=== PATIENT | male | born 1960 | race Caucasian/White ===

== ENCOUNTER 2021-12-06 06:53 | Day surgery (SDC) | payer BC ==
[2021-11-30 15:20] VITALS: BMI 27.3
[~2021-12-06 06:53] MED LIST: LACTATED RINGERS 1,000 ML IV SCH; LIDOCAINE 1% (10MG/ML) FOR IV START INTRADERMA PRN
[2021-12-06 07:18] VITALS: TEMP 98.2
[2021-12-06] MEDS ORDERED: PROPOFOL 10 MG/ML 20 ML VIAL IV ONE (07:34)
--- NOTE | 2021-12-06 08:03 | P.PCN ---
Date of Procedure: 12/06/21 Procedure(s) Performed: BRIEF HISTORY: Patient is a 61-year-old pleasant white male scheduled for an elective colonoscopy as a part of the prior history of colon polyps. PROCEDURE PERFORMED: Colonoscopy with biopsy. PREOPERATIVE DIAGNOSIS: History of colon polyps. IV sedation per Anesthesia. PROCEDURE: After informed consent was obtained, the patient, was brought into the endoscopy unit. IV sedation was administered by Anesthesia under continuous monitoring. Digital rectal examination was normal. Initially the Olympus CF-160 flexible video colonoscope was then inserted in the rectum, gradually advanced into the cecum without any difficulty. Careful examination was performed as the scope was gradually being withdrawn. Ileocecal valve and the appendiceal orifice were visualized and appeared normal. Prep was excellent. Mucosa of the cecum, ascending colon, normal. In the hepatic flexure there was a 5 mm sessile polyp that was removed by cold biopsy. Rest of the transverse colon, descending colon, sigmoid colon, and rectum appeared normal. Retroflexion was performed in the rectum and no lesions were seen. The patient tolerated the procedure well. IMPRESSION: Will meter sessile polyp in the hepatic flexure status post cold biopsy Rest of the colon appeared normal RECOMMENDATIONS: Findings of this examination were discussed with the patient as well as his family. He was advised with the biopsy results. If the biopsy result adenoma he can have a repeat colonoscopy in 5 years..
[2021-12-06 08:25] VITALS: BP 130/72; PULSE 64; RESP 16
== END 2021-12-06 08:40 | disposition home or self-care (01) ==
LOC: ORWHC2ENDO 06:53
PROVIDERS: ATTEND Internal Medicine Gastroenterology
DX: Z12.11 Encounter for screening for malignant neoplasm of colon (principal); D12.3 Benign neoplasm of transverse colon; Z86.010 Personal history of colon polyps; F17.290 Nicotine dependence, other tobacco product, uncomplicated; K21.9 Gastro-esophageal reflux disease without esophagitis; Z79.899 Other long term (current) drug therapy; Z88.5 Allergy status to narcotic agent; Z88.8 Allergy status to other drugs, medicaments and biological substances; Z91.030 Bee allergy status
CPT/HCPCS: 88305; 45380; J2704

== ENCOUNTER 2021-12-11 11:18 | Observation (INO) | payer BC ==
[2021-12-11] MEDS ORDERED: SODIUM CHLORIDE 0.9% 1,000 ML IV STA (11:25)
--- NOTE | 2021-12-11 11:30 | ED ---
Abdominal Pain HPI - General Chief Complaint: Abdominal Pain Stated Complaint: abd pain Time Seen by Provider: 12/11/21 11:25 Source: patient, RN notes reviewed Mode of arrival: ambulatory Limitations: no limitations - History of Present Illness Initial Comments: This is a pleasant 61-year-old male who was sent over from the [facility] for an outpatient CT. Patient went to the diagnostic center and was turned back for not having preauthorization. Patient signed in as an ER patient. Patient has right lower quadrant abdominal pain. Patient states he had a colonoscopy on Sunday. Pain has been getting worse since then. No nausea or vomiting. Some constipation. No BM in 2 days. - Related Data Home Medications Medication Instructions Recorded Confirmed Tamsulosin HCl [Flomax] 0.4 mg PO DAILY 12/02/21 12/06/21 Allergies Allergy/AdvReac Type Severity Reaction Status Date / Time venom-honey bee Allergy Severe Swelling Verified 12/11/21 11:19 [bee venom (honey bee)] codeine Allergy Unknown Verified 12/11/21 11:19 Childhood fluoxetine [From Prozac] Allergy Rapid Verified 12/11/21 11:24 Heart Rate naproxen Allergy Swelling Verified 12/11/21 11:19 Review of Systems ROS Statement: Those systems with pertinent positive or pertinent negative responses have been documented in the HPI. ROS Other: All systems not noted in ROS Statement are negative. Past Medical History Past Medical History: GERD/Reflux Additional Past Medical History / Comment(s): GERD RESOLVED WITH DIET CHANGE History of Any Multi-Drug Resistant Organisms: None Reported Past Surgical History: Tonsillectomy Additional Past Surgical History / Comment(s): EGD, colonoscopy Past Anesthesia/Blood Transfusion Reactions: No Reported Reaction Past Psychological History: No Psychological Hx Reported Smoking Status: Former smoker Past Alcohol Use History: Occasional Past Drug Use History: None Reported - Past Family History Mother Family Medical History: Deep Vein Thrombosis (DVT) General Exam Limitations: no limitations General appearance: alert, in no apparent distress Head exam: Present: atraumatic, normocephalic, normal inspection Eye exam: Present: normal appearance, PERRL, EOMI. Absent: scleral icterus, conjunctival injection, periorbital swelling ENT exam: Present: normal exam, mucous membranes moist Neck exam: Present: normal inspection. Absent: tenderness, meningismus, lymphadenopathy Respiratory exam: Present: normal lung sounds bilaterally. Absent: respiratory distress, wheezes, rales, rhonchi, stridor Cardiovascular Exam: Present: regular rate, normal rhythm, normal heart sounds. Absent: systolic murmur, diastolic murmur, rubs, gallop, clicks GI/Abdominal exam: Present: soft, tenderness, guarding, normal bowel sounds. Absent: distended, rebound, rigid, diminished bowel sounds, hyperactive bowel sounds, hypoactive bowel sounds, organomegaly, mass, bruit, pulsatile mass, hernia Extremities exam: Present: normal inspection, full ROM, normal capillary refill. Absent: tenderness, pedal edema, joint swelling, calf tenderness Back exam: Present: normal inspection Neurological exam: Present: alert, oriented X3, CN II-XII intact Psychiatric exam: Present: normal affect, normal mood Skin exam: Present: warm, dry, intact, normal color. Absent: rash Course Vital Signs 12/11/21 12/11/21 11:20 15:00 Temperature 98.7 F Pulse Rate 74 62 Respiratory 18 18 Rate Blood Pressure 132/82 118/79 O2 Sat by Pulse 99 97 Oximetry Medical Decision Making - Medical Decision Making Patient presents with abdominal pain and right flank pain after having a screening colonoscopy on December 06. Differential includes intra-abdominal inflammatory versus infectious etiology, possible perforated bowel, possible musculoskeletal pain. Patient does state that he twisted getting to his vehicle that morning and may have had a slight tweak to his right lower back at that time. However symptoms have progressed. Mild diminished appetite. The case was discussed in detail with ED attending physician. Presentation, findings, treatment plan discussed in detail. Patient was also seen and assessed by the attending physician, Dr. Pardo. Patient will be admitted to [place] emergency department physician, under Dr. Alford for observation. Case discussed in detail. Renal ultrasound was added. Patient's computed tomography scan and blood work did not show any significant explain the patient's symptoms. - Lab Data Result diagrams: 12/11/21 11:46 12/11/21 12:25 Lab Results 12/11/21 12/11/21 12/11/21 Range/Units 11:34 11:39 11:46 WBC 9.2 (3.8-10.6) k/uL RBC 5.19 (4.30-5.90) m/uL Hgb 16.1 (13.0-17.5) gm/dL Hct 49.1 (39.0-53.0) % MCV 94.6 (80.0-100.0) fL MCH 31.1 (25.0-35.0) pg MCHC 32.9 (31.0-37.0) g/dL RDW 13.5 (11.5-15.5) % Plt Count 246 (150-450) k/uL MPV 7.9 Neutrophils % 79 % Lymphocytes % 16 % Monocytes % 3 % Eosinophils % 1 % Basophils % 0 % Neutrophils # 7.3 (1.3-7.7) k/uL Lymphocytes # 1.5 (1.0-4.8) k/uL Monocytes # 0.3 (0-1.0) k/uL Eosinophils # 0.1 (0-0.7) k/uL Basophils # 0.0 (0-0.2) k/uL Sodium (137-145) mmol/L Potassium (3.5-5.1) mmol/L Chloride (98-107) mmol/L Carbon Dioxide (22-30) mmol/L Anion Gap mmol/L BUN (9-20) mg/dL Creatinine (0.66-1.25) mg/dL Est GFR (CKD-EPI)AfAm (>60 ml/min/1.73 sqM) Est GFR (CKD-EPI)NonAf (>60 ml/min/1.73 sqM) Glucose (74-99) mg/dL Plasma Lactic Acid Rishi 1.5 (0.7-2.0) mmol/L Calcium (8.4-10.2) mg/dL Total Bilirubin (0.2-1.3) mg/dL AST (17-59) U/L ALT (4-49) U/L Alkaline Phosphatase (38-126) U/L Total Protein (6.3-8.2) g/dL Albumin (3.5-5.0) g/dL Amylase (30-110) U/L Lipase (23-300) U/L Urine Color Yellow Urine Appearance Clear (Clear) Urine pH 6.0 (5.0-8.0) Ur Specific [place] 1.022 (1.001-1.035) Urine Protein Trace H (Negative) Urine Glucose (UA) 1+ H (Negative) Urine Ketones Negative (Negative) Urine Blood Negative (Negative) Urine Nitrite Negative (Negative) Urine Bilirubin Negative (Negative) Urine Urobilinogen <2.0 (<2.0) mg/dL Ur Leukocyte Esterase Negative (Negative) 12/11/21 Range/Units 12:25 WBC (3.8-10.6) k/uL RBC (4.30-5.90) m/uL Hgb (13.0-17.5) gm/dL Hct (39.0-53.0) % MCV (80.0-100.0) fL MCH (25.0-35.0) pg MCHC (31.0-37.0) g/dL RDW (11.5-15.5) % Plt Count (150-450) k/uL MPV Neutrophils % % Lymphocytes % % Monocytes % % Eosinophils % % Basophils % % Neutrophils # (1.3-7.7) k/uL Lymphocytes # (1.0-4.8) k/uL Monocytes # (0-1.0) k/uL Eosinophils # (0-0.7) k/uL Basophils # (0-0.2) k/uL Sodium 137 (137-145) mmol/L Potassium 4.5 (3.5-5.1) mmol/L Chloride 110 H (98-107) mmol/L Carbon Dioxide 25 (22-30) mmol/L Anion Gap 2 mmol/L BUN 14 (9-20) mg/dL Creatinine 0.92 (0.66-1.25) mg/dL Est GFR (CKD-EPI)AfAm >90 (>60 ml/min/1.73 sqM) Est GFR (CKD-EPI)NonAf >90 (>60 ml/min/1.73 sqM) Glucose 110 H (74-99) mg/dL Plasma Lactic Acid Rishi (0.7-2.0) mmol/L Calcium 8.5 (8.4-10.2) mg/dL Total Bilirubin 0.5 (0.2-1.3) mg/dL AST 22 (17-59) U/L ALT 24 (4-49) U/L Alkaline Phosphatase 65 (38-126) U/L Total Protein 6.6 (6.3-8.2) g/dL Albumin 3.5 (3.5-5.0) g/dL Amylase 57 (30-110) U/L Lipase 249 (23-300) U/L Urine Color Urine Appearance (Clear) Urine pH (5.0-8.0) Ur Specific [place] (1.001-1.035) Urine Protein (Negative) Urine Glucose (UA) (Negative) Urine Ketones (Negative) Urine Blood (Negative) Urine Nitrite (Negative) Urine Bilirubin (Negative) Urine Urobilinogen (<2.0) mg/dL Ur Leukocyte Esterase (Negative) Disposition Referrals: Gurmeet Edge MD [Primary Care Provider] - 1-2 days
[2021-12-11] MEDS ORDERED: ONDANSETRON 4 MG/2 ML VIAL IVP STA (11:38)
[2021-12-11] MEDS ORDERED: MORPHINE SULFATE 4 MG/ML SYRINGE IV STA (11:38)
[2021-12-11 11:43] LABS: Appearance,Urine Clear (Clear); Bilirubin,Urine Negative (Negative); Blood,Urine Negative (Negative); Color,Urine Yellow; Glucose,Urine (UA) 1+ (Negative); Ketones,Urine Negative (Negative); Leukocyte Esterase,Urine Negative (Negative); Nitrite,Urine Negative (Negative); Protein,Urine Trace (Negative); Specific Gravity,Urine 1.022 (1.001-1.035); Urobilinogen,Urine <2.0 mg/dL (<2.0)
[2021-12-11 11:56] LABS: Basophils % (A) 0 %; Eosinophils # (A) 0.1 k/uL (0-0.7); Eosinophils % (A) 1 %; HCT 49.1 % (39.0-53.0); HGB 16.1 gm/dL (13.0-17.5); Lymphocytes # (A) 1.5 k/uL (1.0-4.8); Lymphocytes % (A) 16 %; MCH 31.1 pg (25.0-35.0); MCHC 32.9 g/dL (31.0-37.0); MCV 94.6 fL (80.0-100.0); Mean Platelet Volume 7.9; Monocytes # (A) 0.3 k/uL (0-1.0); Monocytes % (A) 3 %; Neutrophils # (A) 7.3 k/uL (1.3-7.7); Neutrophils % (A) 79 %; Platelet Count 246 k/uL (150-450); RBC 5.19 m/uL (4.30-5.90); RDW 13.5 % (11.5-15.5); WBC 9.2 k/uL (3.8-10.6)
--- NOTE | 2021-12-11 12:07 | XR ---
EXAMINATION TYPE: XR chest 1V portable DATE OF EXAM: 12/11/2021 COMPARISON: NONE HISTORY: Pain TECHNIQUE: Single frontal view of the chest is obtained. FINDINGS: There is no focal air space opacity, pleural effusion, or pneumothorax seen. The cardiac silhouette size is within normal limits. The osseous structures are intact. IMPRESSION: No acute process.
[2021-12-11 12:49] LABS: ALT 24 U/L (4-49); AST 22 U/L (17-59); African American GFR (CKD) >90 (>60 ml/min/1.73 sqM); Albumin 3.5 g/dL (3.5-5.0); Alkaline Phosphatase 65 U/L (38-126); Amylase 57 U/L (30-110); Anion Gap 2 mmol/L; Blood Urea Nitrogen 14 mg/dL (9-20); Calcium 8.5 mg/dL (8.4-10.2); Carbon Dioxide 25 mmol/L (22-30); Chloride 110 mmol/L (98-107); Glucose 110 mg/dL (74-99); Lipase 249 U/L (23-300); Non-African American GFR(CKD) >90 (>60 ml/min/1.73 sqM); Potassium 4.5 mmol/L (3.5-5.1); Sodium 137 mmol/L (137-145); Total Bilirubin 0.5 mg/dL (0.2-1.3); Total Protein 6.6 g/dL (6.3-8.2)
--- NOTE | 2021-12-11 14:45 | CT ---
EXAMINATION TYPE: CT abdomen pelvis w con DATE OF EXAM: 12/11/2021 COMPARISON: None HISTORY: Abdominal pain, RLQ CT DLP: 1034.8 mGycm Automated exposure control for dose reduction was used. TECHNIQUE: Helical acquisition of images was performed from the lung bases through the pelvis. CONTRAST: Performed without Oral Contrast and with IV Contrast, patient injected with 100 ml mL of Isovue 300. FINDINGS: LUNG BASES: Scarring at the lung bases. LIVER/GB: Liver is hypoattenuating relative to spleen suggesting steatosis. The gallbladder is unrema rkable. PANCREAS: No significant abnormality is seen. SPLEEN: No significant abnormality is seen. ADRENALS: No significant abnormality is seen. KIDNEYS: No significant abnormality is seen. FREE AIR: No free air is visualized. RETROPERITONEAL ADENOPATHY: None visualized REPRODUCTIVE ORGANS: Prostatomegaly. URINARY BLADDER: Underdistended limiting assessment. PELVIC ADENOPATHY: None visualized. OSSEOUS STRUCTURES: Degenerative changes of the spine. BOWEL: Diverticulosis coli of the descending colon diverticulitis. Colon gas in nondilated large bow el. No abnormally dilated small bowel. The appendix is visualized and not dilated or inflamed. OTHER: Lipomatous hypertrophy of the inguinal canals bilaterally. IMPRESSION: DIVERTICULOSIS COLI WITHOUT EVIDENCE OF ACUTE DIVERTICULITIS.
[2021-12-11] MEDS ORDERED: NALOXONE 0.4 MG/ML 1 ML VIAL IV PRN (15:38)
[2021-12-11] MEDS ORDERED: ONDANSETRON 4 MG/2 ML VIAL IVP PRN (15:38)
[2021-12-11] MEDS ORDERED: ACETAMINOPHEN TAB 325 MG TAB PO PRN (15:38)
[2021-12-11] MEDS: SODIUM CHLORIDE 0.9% 1,000 ML IV SCH (16:50)
[2021-12-11] MEDS: MORPHINE SULFATE 4 MG/ML SYRINGE IV PRN ×2 (16:53→21:29)
--- NOTE | 2021-12-11 17:17 | P.HPIM ---
History of Present Illness H&P Date: 12/11/21 Chief Complaint: Flank Pain 61 year old man with history of BPH presented for flank pain. Pt says the pain started after his routine colonoscopy on Sunday, and has been getting progressively worse. He went to urgent care on Sunday for the pain and was prescribed prednisone and flexeril for the pain, but this did not help. He subsequently presents today to undergo imaging for the pain since it has not resolved. He describes the pain as located in the right flank with radiation into the RLQ. He says that he has worse pain after releasing the abdomen after pressing in. This quality is sharp in nature as if "being stabbed by a knife." He has lost his appetite, and no stools in last 48 hours. Denies fevers, chills, nausea, vomiting, chest pain, palps, syncope, presyncope, cough, dyspnea, dysuria, melena, numbness/weakness of extremities. In the ER, he is afebrile, 118/79, HR 62, 97% on room air. CBC and chemistries are unremarkable. Lactate is negative. CT A/P shows diverticulosis without diverticulitis. Abd US is pending. UA has trace protein and 1+ glucose. COVID negative. CXR is clear without pulmonary pathology. Pt admitted for pain control. Review of Systems All Systems reviewed and pertinent positives and negatives noted in HPI, all other symptoms are negative Past Medical History Past Medical History: GERD/Reflux Additional Past Medical History / Comment(s): GERD RESOLVED WITH DIET CHANGE History of Any Multi-Drug Resistant Organisms: None Reported Past Surgical History: Tonsillectomy Additional Past Surgical History / Comment(s): EGD, colonoscopy Past Anesthesia/Blood Transfusion Reactions: No Reported Reaction Past Psychological History: No Psychological Hx Reported Smoking Status: Former smoker Past Alcohol Use History: Occasional Past Drug Use History: None Reported - Past Family History Mother Family Medical History: Deep Vein Thrombosis (DVT) Medications and Allergies Home Medications Medication Instructions Recorded Confirmed Type Tamsulosin HCl [Flomax] 0.4 mg PO DAILY 12/02/21 12/11/21 History Cholecalciferol [Vitamin D3 (25 25 mcg PO DAILY 12/11/21 12/11/21 History Mcg = 1000 Iu)] Cyclobenzaprine [Flexeril] 10 mg PO TID PRN 12/11/21 12/11/21 History predniSONE See Taper PO DIRECTED 12/11/21 12/11/21 History Allergies Allergy/AdvReac Type Severity Reaction Status Date / Time venom-honey bee Allergy Severe Swelling Verified 12/11/21 15:58 [bee venom (honey bee)] codeine Allergy Unknown Verified 12/11/21 15:58 Childhood fluoxetine [From Prozac] Allergy Rapid Verified 12/11/21 15:58 Heart Rate naproxen Allergy Swelling Verified 12/11/21 15:58 Physical Exam Osteopathic Statement: *. No significant issues noted on an osteopathic structural exam other than those noted in the History and Physical/Consult. Vitals: Vital Signs Temp Pulse Resp BP Pulse Ox 12/11/21 15:00 62 18 118/79 97 12/11/21 11:20 98.7 F 74 18 132/82 99 Intake and Output 12/11/21 12/11/21 12/11/21 06:59 14:59 22:59 Other: Weight 81.647 kg Gen: awake, alert HEENT: normocephalic, atraumatic, good hearing acuity, moist mucous membranes Resp: good air exchange, breathing comfortably with no accessory muscle use, CTAB, no wheezing CVS: good distal perfusion x 4, RRR, no murmurs GI: TTP in the RLQ and flank with rebound tenderness, no guarding, BS appropriate : no SPT, no CVAT, toledo catheter not present MSK: no pitting edema, no clubbing Neuro: non-focal, moving all extremities Psych: cooperative, euthymic mood Results CBC & Chem 7: 12/11/21 11:46 12/11/21 12:25 Labs: Abnormal Lab Results - Last 24 Hours (Table) 12/11/21 12/11/21 Range/Units 11:34 12:25 Chloride 110 H (98-107) mmol/L Glucose 110 H (74-99) mg/dL Urine Protein Trace H (Negative) Urine Glucose (UA) 1+ H (Negative) Assessment and Plan Assessment: Flank Pain -admit to observation -morphine PRN -flexeril PRN -tylenol PRN -repeat Abd XR upright tomorrow AM to ensure no free air develops -XR thoracic/lumbar spine to screen for radiculopathy -discontinue home prednisone, as there is no obvious indication BPH -resume home tamsulosin Pt is a full code
[2021-12-11 18:16] VITALS: RESP 16
[2021-12-11] MEDS: CYCLOBENZAPRINE 10 MG TAB PO PRN (20:33)
--- NOTE | 2021-12-11 21:35 | XR ---
EXAMINATION TYPE: XR lumbar spine 2 or 3V DATE OF EXAM: 12/11/2021 CLINICAL HISTORY: Pain for 6 days since colonoscopy. TECHNIQUE: Frontal, lateral, and oblique images of the lumbar spine are obtained. COMPARISON: Lumbar spine 01/12/2015 FINDINGS: There are 5 lumbar type vertebral bodies identified. The lumbar spine shows satisfactory alignment without evidence of acute fracture or dislocation. Anterior imaging of the L1 vertebral body similar to prior. There is height loss predominantly at L4- L5 and L5-S1. There are degenerative facet changes in the lumbar spine. Partially visualized contrast over the pelvis. IMPRESSION: Degenerative changes without an acute fracture or subluxation in the lumbar spine.
--- NOTE | 2021-12-11 21:39 | XR ---
EXAMINATION TYPE: XR thoracic spine 2V DATE OF EXAM: 12/11/2021 CLINICAL HISTORY: Fall with mid back pain. TECHNIQUE: Frontal, lateral, and swimmer's view of thoracic spine are obtained. COMPARISON: None. FINDINGS: There is suggestion of compression deformity of the superior endplates of T3 and T4 with less than 20 % height loss. There is degenerative endplate and disc disease throughout the thoracic spine. IMPRESSION: There is suggestion of compression deformity of the superior endplates of T3 and T4 with less than 20% height loss. Correlate for point tenderness.
--- NOTE | 2021-12-11 21:46 | US ---
EXAMINATION TYPE: US kidneys/renal and bladder DATE OF EXAM: 12/11/2021 COMPARISON: CT 2021 CLINICAL HISTORY: right flank pain . EXAM MEASUREMENTS: Right Kidney: 8.1 x 4.9 x 4.5 cm Left Kidney: 9.1 x 5.3 x 4.4 cm Right Kidney: measures small in size, no hydronephrosis or masses seen Left Kidney: No hydronephrosis or masses seen Bladder: 1.6 x 1.6cm hypoechoic vascular area along posterior wall Bilateral Jets seen: no There is no evidence for hydronephrosis at this point in time. No nephrolithiasis is seen. IMPRESSION: 1. Unremarkable sonographic appearance of the bilateral kidneys. No hydronephrosis or nephrolithiasi s. 2. There is a 1.6 x 1.6cm hypoechoic mural nodule that demonstrates vascularity along the posterior bladder wall. Correlate with cystoscopy.
[2021-12-12] MEDS: MORPHINE SULFATE 4 MG/ML SYRINGE IV PRN (03:21)
[2021-12-12] MEDS: SODIUM CHLORIDE 0.9% 1,000 ML IV SCH (03:25)
[2021-12-12 03:28] VITALS: TEMP 97.6
--- NOTE | 2021-12-12 08:10 | XR ---
EXAMINATION TYPE: XR abdomen 1V DATE OF EXAM: 12/12/2021 8:03 AM CLINICAL HISTORY: Abdominal pain in particular right lower quadrant pain. TECHNIQUE: Two Upright KUB images of the abdomen are obtained. COMPARISON: CT abdomen and pelvis December 11, 2021 FINDINGS: Scattered gas is seen in non-distended small bowel loops. Gas and fecal material is seen in non-distended colon. There is no visceromegaly, pneumoperitoneum, or abnormal calcification apprecia robert. Contrast from recent CT has not completely emptied out of the bladder. Wall trabeculations are r edemonstrated. Single left-sided pelvic phlebolith. IMPRESSION: Overall nonobstructive bowel gas pattern redemonstrated.
[2021-12-12] MEDS: CYCLOBENZAPRINE 10 MG TAB PO PRN (08:15)
[2021-12-12 09:12] VITALS: BP 113/76; PULSE 57
--- NOTE | 2021-12-12 12:46 | P.DS ---
Providers Date of admission: 12/11/21 15:45 Expected date of discharge: 12/12/21 Attending physician: Mana Alford MD Primary care physician: Gurmeet Edge Hospital Course: Flank Pain -admitted to observation. Morphine, flexeril, tylenol PRN orders were provided for pain control. CT A/P did not demonstrate etiology of pain, showed diverticulosis without diverticulitis. Renal US did not demonstrate hydronep hrosis, hydroureter, but did show incidental 1.6cm hypoechoic mural nodule in the bladder. XR T/L spine showed degenerative disease and possible compression deformity in the T2-3 area, which did not correlate to point tenderness on physical exam. A repeat upright Abd XR this morning ruled out perforation. His home prednisone was discontinued and he was discharged with 3 day supply of norco with instructions to f/u with PCP for further management of pain. BPH Nodule in Bladder -resume home tamsulosin -patient needs outpatient urology referral for bladder nodule, he was notified of this via phone after discharge. Assessment: Gen: awake, alert HEENT: normocephalic, atraumatic, good hearing acuity, moist mucous membranes Resp: good air exchange, breathing comfortably with no accessory muscle use, CTAB, no wheezing CVS: good distal perfusion x 4, RRR, no murmurs GI: TTP in the RLQ and flank with rebound tenderness, no guarding, BS appropriate : no SPT, no CVAT, toledo catheter not present MSK: no pitting edema, no clubbing Neuro: non-focal, moving all extremities Psych: cooperative, euthymic mood Patient Condition at Discharge: Good Plan - Discharge Summary Discharge Rx Participant: No New Discharge Prescriptions: New HYDROcodone/APAP 5-325MG [Porter 5-325] 1 tab PO Q4HR PRN 3 Days #18 tab PRN Reason: Pain Acetaminophen Tab [Tylenol] 650 mg PO Q6HR PRN tab PRN Reason: Mild Pain Or Fever > 100.5 Continue Tamsulosin HCl [Flomax] 0.4 mg PO DAILY Cholecalciferol [Vitamin D3 (25 Mcg = 1000 Iu)] 25 mcg PO DAILY Cyclobenzaprine [Flexeril] 10 mg PO TID PRN PRN Reason: Muscle Pain Discontinued predniSONE See Taper PO DIRECTED Discharge Medication List Tamsulosin HCl [Flomax] 0.4 mg PO DAILY 12/02/21 [History] Cholecalciferol [Vitamin D3 (25 Mcg = 1000 Iu)] 25 mcg PO DAILY 12/11/21 [History] Cyclobenzaprine [Flexeril] 10 mg PO TID PRN 12/11/21 [History] Acetaminophen Tab [Tylenol] 650 mg PO Q6HR PRN tab 12/12/21 [Rx] HYDROcodone/APAP 5-325MG [Porter 5-325] 1 tab PO Q4HR PRN 3 Days #18 tab 12/12/21 [Rx] Follow up Appointment(s)/Referral(s): Gurmeet Edge MD [Primary Care Provider] - 12/14/21 11:30 am Discharge Disposition: HOME SELF-CARE
== END 2021-12-12 11:25 | disposition home or self-care (01) ==
LOC: EC 11:18 → 6NMEDSUR 15:45
PROVIDERS: ADMIT Internal Medicine; ATTEND Internal Medicine
DX: K57.90 Diverticulosis of intestine, part unspecified, without perforation or abscess without bleeding (principal); R10.31 Right lower quadrant pain; N32.89 Other specified disorders of bladder; K59.00 Constipation, unspecified; M51.36 Other intervertebral disc degeneration, lumbar region; N40.0 Benign prostatic hyperplasia without lower urinary tract symptoms; K21.9 Gastro-esophageal reflux disease without esophagitis; Z20.822 Contact with and (suspected) exposure to COVID-19; Z79.899 Other long term (current) drug therapy; Z88.5 Allergy status to narcotic agent; Z88.8 Allergy status to other drugs, medicaments and biological substances; Z88.6 Allergy status to analgesic agent; Z91.030 Bee allergy status; Z87.891 Personal history of nicotine dependence; Z82.49 Family history of ischemic heart disease and other diseases of the circulatory system
CPT/HCPCS: 99285; 96376 ×3; 96361; 96374; 96375; 36415; 80053; 82150; 83605; 83690; 85025; 81003; 87635; 72070; 72100; 71045; 74018; 76770; 74177; G0378 ×2; J2270 ×2; J2405; Q9967